=== PATIENT | male | born 1970 | race Caucasian/White ===

== ENCOUNTER 2018-08-14 17:12 | Observation (INO) | payer OTHER ==
[2018-08-14] MEDS ORDERED: Sodium Chloride 0.9% 1,000 ML IV ONE ×2 (17:16→17:27)
[2018-08-14] MEDS ORDERED: Piperacillin/Tazobactam 4.5 GM in Sodium Chloride 0.9% 100 ML IV ONE (17:27)
--- NOTE | 2018-08-14 17:27 | EDM.PDOC ---
ED HPI GENERAL MEDICAL PROBLEM - General Stated Complaint: SENT BY DR GATES A RESULT FROM LABS Time Seen by Provider: 08/14/18 17:14 - History of Present Illness INITIAL COMMENTS - FREE TEXT/NARRATIVE: HISTORY AND PHYSICAL: History of present illness: Patient's a 48-year-old male with history of COPD and hypertension sleep apnea presents with a concern of cellulitis to his left leg possible early sepsis. He was sent here by his private medical doctor for admission. This been worse over the last 2448 hrs. Review of systems: As per history of present illness and below otherwise all systems reviewed and negative. Past medical history: As per history of present illness and as reviewed below otherwise noncontributory. Surgical history: As per history of present illness and as reviewed below otherwise noncontributory. Social history: No reported history of drug or alcohol abuse. Family history: As per history of present illness and as reviewed below otherwise noncontributory. Physical exam: HEENT: Atraumatic, normocephalic, pupils reactive, negative for conjunctival pallor or scleral icterus, mucous membranes moist, throat clear, neck supple, nontender, trachea midline. Lungs: Clear to auscultation, breath sounds equal bilaterally, chest nontender. Heart: S1S2, regular, negative for clicks, rubs, or JVD. Abdomen: Soft, nondistended, nontender. Negative for masses or hepatosplenomegaly. Negative for costovertebral tenderness. Pelvis: Stable nontender. Genitourinary: Deferred. Rectal: Deferred. Extremities: Patient has a 5 x 4 cm area of erythema left leg within a descending lymphangitis is warm and slightly tender no fluctuance no induration neurovascular exams unremarkable Neuro: Awake, alert, oriented. Cranial nerves II through XII unremarkable. Cerebellum unremarkable. Motor and sensory unremarkable throughout. Exam nonfocal. Diagnostics: CBC CMP blood culture 2 chest x-ray left tib-fib x-ray lactic acid Therapeutics: Saline 1 L bolus vancomycin 1 g IV Zosyn 3.375 IV Impression: #1 cellulitis left lower extremity with ascending lymphangitis Definitive disposition and diagnosis as appropriate pending reevaluation and review of above. ED ROS GENERAL - Review of Systems Review Of Systems: ROS reveals no pertinent complaints other than HPI. ED EXAM, GENERAL - Physical Exam Exam: See Below (See dictation) Course - Orders/Labs/Meds Orders: Active Orders 24 hr Category Date Time Status Chest 1V Frontal [CR] Stat Exams 08/14/18 17:20 Ordered Tibia Fibula Lt [CR] Stat Exams 08/14/18 17:18 Ordered CBC WITH AUTO DIFF [HEME] Stat Lab 08/14/18 17:15 Ordered COMPREHENSIVE METABOLIC PN,CMP [CHEM] Stat Lab 08/14/18 17:15 Ordered CULTURE BLOOD [BC] Stat Lab 08/14/18 17:16 Ordered CULTURE BLOOD [BC] Stat Lab 08/14/18 17:16 Ordered INR,PT,PROTHROMBIN TIME [COAG] Stat Lab 08/14/18 17:15 Ordered LACTATE WITH REFLEX [BG] Stat Lab 08/14/18 17:16 Ordered UA RFX AUGUSTUS AND CULT IF INDIC [URIN] Stat Lab 08/14/18 17:15 Ordered Sodium Chloride 0.9% [Normal Saline] 1,000 ml Med 08/14/18 17:16 Active IV STAT Vancomycin [Vancocin] 1 gm Med 08/14/18 17:16 Active Sodium Chloride 0.9% [Normal Saline] 250 ml IV ONETIME Blood Culture x2 Reflex Set [OM.PC] Stat Oth 08/14/18 17:16 Ordered Medication Orders Sodium Chloride (Normal Saline) 1,000 mls @ 999 mls/hr IV STAT ONE Stop: 08/14/18 18:16 Vancomycin HCl 1 gm/ Sodium (Chloride) 250 mls @ 250 mls/hr IV ONETIME ONE Stop: 08/14/18 18:15 Meds: Medications Generic Name Dose Route Start Last Admin Trade Name Freq PRN Reason Stop Dose Admin Sodium Chloride 1,000 mls @ 999 mls/hr 08/14/18 17:16 Normal Saline IV 08/14/18 18:16 STAT ONE Vancomycin HCl 1 gm/ Sodium 250 mls @ 250 mls/hr 08/14/18 17:16 Chloride IV 08/14/18 18:15 ONETIME ONE Departure - Departure Time of Disposition: 17:26 Disposition: Refer to Observation Condition: Good Clinical Impression: Cellulitis - Discharge Information Referrals: Juliano Gates MD [Primary Care Provider] - - My Orders Last 24 Hours: My Active Orders 08/14/18 17:15 CBC WITH AUTO DIFF [HEME] Stat COMPREHENSIVE METABOLIC PN,CMP [CHEM] Stat INR,PT,PROTHROMBIN TIME [COAG] Stat UA RFX [place] AND CULT IF INDIC [URIN] Stat 08/14/18 17:16 CULTURE BLOOD [BC] Stat CULTURE BLOOD [BC] Stat LACTATE WITH REFLEX [BG] Stat Sodium Chloride 0.9% [Normal Saline] 1,000 ml IV STAT Vancomycin [Vancocin] 1 gm Sodium Chloride 0.9% [Normal Saline] 250 ml IV ONETIME Blood Culture x2 Reflex Set [OM.PC] Stat 08/14/18 17:18 Tibia Fibula Lt [CR] Stat 08/14/18 17:20 Chest 1V Frontal [CR] Stat - Assessment/Plan Last 24 Hours: My Active Orders 08/14/18 17:15 CBC WITH AUTO DIFF [HEME] Stat COMPREHENSIVE METABOLIC PN,CMP [CHEM] Stat INR,PT,PROTHROMBIN TIME [COAG] Stat UA RFX AUGUSTUS AND CULT IF INDIC [URIN] Stat 08/14/18 17:16 CULTURE BLOOD [BC] Stat CULTURE BLOOD [BC] Stat LACTATE WITH REFLEX [BG] Stat Sodium Chloride 0.9% [Normal Saline] 1,000 ml IV STAT Vancomycin [Vancocin] 1 gm Sodium Chloride 0.9% [Normal Saline] 250 ml IV ONETIME Blood Culture x2 Reflex Set [OM.PC] Stat 08/14/18 17:18 Tibia Fibula Lt [CR] Stat 08/14/18 17:20 Chest 1V Frontal [CR] Stat
[2018-08-14] MEDS ORDERED: Docusate Sodium 100 MG Cap PO PRN (17:51)
[2018-08-14] MEDS ORDERED: Ondansetron 4 MG/2 ML SDV IVPUSH PRN (17:51)
--- NOTE | 2018-08-14 18:01 | PCM.HP ---
H&P History of Present Illness - General Date of Service: 08/14/18 Admit Problem/Dx: Admission Diagnosis/Problem Admission Diagnosis/Problem Cellulitis, left lower leg Source of Information: Patient History Limitations: Reports: No Limitations - History of Present Illness Initial Comments - Free Text/Narative: The patient is a 48-year-old gentleman who had presented to the emergency department after being referred from his primary care physician. For the past 3 days the patient has been having difficulty with fever and chills and skin infection of his left lower leg. The patient also has had pain in his left lower extremity does not radiate. The patient has been exposed recently to somebody with a possible MRSA infection. The patient has reported at home that his temperature got up to 102F to 103F. Patient also says that he has had difficulty ambulating. Patient also has denied any dizziness or lightheadedness. No nausea or vomiting. No skin trauma. The patient does have a history of hypertension and has been on medications for this. Onset of Symptoms: Reports: Gradual Duration of Symptoms: Reports: Day(s): Location: Reports: Lower Extremity, Left Quality: Reports: Ache, Burning Severity: Moderate Improves with: Reports: Rest Worsens with: Reports: Heat Therapy, Movement Context: Reports: Sick Contact Associated Symptoms: Reports: Fever/Chills, Rash - Related Data Allergies/Adverse Reactions: Allergies Allergy/AdvReac Type Severity Reaction Status Date / Time No Known Allergies Allergy Verified 08/14/18 17:28 Home Medications: Home Meds Lisinopril 1 tab PO BID 08/14/18 [History] Metoprolol Tartrate 1 tab PO BID 08/14/18 [History] amLODIPine [Norvasc] 1 tab PO DAILY 08/14/18 [History] hydroCHLOROthiazide [Hydrochlorothiazide] 1 tab PO DAILY 08/14/18 [History] Past Medical History Cardiovascular History: Reports: Hypertension Respiratory History: Reports: Sleep Apnea Gastrointestinal History: Reports: None Genitourinary History: Reports: None Musculoskeletal History: Reports: None Neurological History: Reports: None Psychiatric History: Reports: None Endocrine/Metabolic History: Reports: None Hematologic History: Reports: None Immunologic History: Reports: None Oncologic (Cancer) History: Reports: None Dermatologic History: Reports: None - Infectious Disease History Infectious Disease History: Reports: Chicken Pox Social & Family History - Family History Family Medical History: Noncontributory - Tobacco Use Smoking Status *Q: Never Smoker - Caffeine Use Caffeine Use: Reports: Coffee, Tea - Alcohol Use Alcohol Use History: Yes Alcohol Use in Last Twelve Months: Yes Alcohol Use Frequency: Rarely - Recreational Drug Use Recreational Drug Use: Yes Recreational Drug Type: Reports: Marijuana/Hashish Other Recreational Drug Type: 3x weekly - Living Situation & Occupation Living situation: Reports: , with Spouse Occupation: Employed H&P Review of Systems - Review of Systems: Review Of Systems: See Below General: Reports: Fever, Chills, Malaise HEENT: Reports: No Symptoms Pulmonary: Reports: No Symptoms Cardiovascular: Reports: No Symptoms Gastrointestinal: Reports: No Symptoms Genitourinary: Reports: No Symptoms Musculoskeletal: Reports: No Symptoms Skin: Reports: Rash (Left lower leg) Psychiatric: Reports: No Symptoms Neurological: Reports: No Symptoms Hematologic/Lymphatic: Reports: No Symptoms Immunologic: Reports: No Symptoms Exam - Exam Exam: See Below - Vital Signs Vital Signs: Last Vital Signs Temp 38.1 C 08/14/18 17:25 Pulse 95 08/14/18 17:25 Resp 18 08/14/18 17:25 BP 139/75 08/14/18 17:25 Pulse Ox 95 08/14/18 17:25 Weight: 149.685 kg - Exam Quality Assessment: No: Supplemental Oxygen General: Alert, Oriented, Cooperative, Mild Distress HEENT: Conjunctiva Clear, EACs Clear, EOMI, PERRLA. No: Mucosa Moist & [place] ( Dry) Neck: Supple, Trachea Midline Lungs: Normal Respiratory Effort, Crackles Cardiovascular: Regular Rate, Regular Rhythm GI/Abdominal Exam: Normal Bowel Sounds, Soft, Non-Tender, No Distention, Other ( Obese) (Male) Exam: Deferred Rectal (Males) Exam: Deferred Back Exam: Normal Inspection, Full Range of Motion Extremities: Normal Inspection, No Pedal Edema Skin: Warm, Dry, Other (Cellulitis left posterior calf with some lymphangitis superiorly area of cellulitis demarcated) Neurological: Cranial Nerves Intact Neuro Extensive - Mental Status: Alert Neuro Extensive - Motor, Sensory, Reflexes: CN II-XII Intact Psychiatric: Alert, Normal Affect - Patient Data Lab Results Last 24 hrs: Laboratory Results - last 24 hr 08/14/18 08/14/18 Range/Units 17:20 17:20 WBC 15.88 H (4.0-11.0) K/uL RBC 4.24 L (4.50-5.90) M/uL Hgb 12.9 L (13.0-17.0) g/dL Hct 37.0 L (38.0-50.0) % MCV 87.3 (80.0-98.0) fL MCH 30.4 (27.0-32.0) pg MCHC 34.9 (31.0-37.0) g/dL RDW Std Deviation 43.5 (28.0-62.0) fl RDW Coeff of Agata 14 (11.0-15.0) % Plt Count 225 (150-400) K/uL MPV 9.20 (7.40-12.00) fL Neut % (Auto) 84.6 H (48.0-80.0) % Lymph % (Auto) 7.9 L (16.0-40.0) % Ellis % (Auto) 7.3 (0.0-15.0) % Eos % (Auto) 0.1 (0.0-7.0) % Baso % (Auto) 0.1 (0.0-1.5) % Neut # (Auto) 13.4 H (1.4-5.7) K/uL Lymph # (Auto) 1.3 (0.6-2.4) K/uL Ellis # (Auto) 1.2 H (0.0-0.8) K/uL Eos # (Auto) 0.0 (0.0-0.7) K/uL Baso # (Auto) 0.0 (0.0-0.1) K/uL Nucleated RBC % 0.0 /100WBC Nucleated RBCs # 0 K/uL Lactate 0.9 (0.20-2.00) mmol/L Result Diagrams: 08/14/18 17:20 - Problem List (1) Sepsis SNOMED Code(s): 33569635 ICD Code: A41.9 - SEPSIS, UNSPECIFIED ORGANISM Status: Acute Priority: High Current Visit: Yes Problem Details: Cutaneous source Qualifiers: Sepsis type: sepsis due to unspecified organism Qualified Code(s): A41.9 - Sepsis, unspecified organism (2) Cellulitis SNOMED Code(s): 462334582 ICD Code: L03.90 - CELLULITIS, UNSPECIFIED Status: Acute Priority: High Current Visit: Yes Qualifiers: Site of cellulitis: extremity Site of cellulitis of extremity: lower extremity Laterality: left Qualified Code(s): L03.116 - Cellulitis of left lower limb (3) Hypertension SNOMED Code(s): 40056707 ICD Code: I10 - ESSENTIAL (PRIMARY) HYPERTENSION Status: Chronic Priority : High Current Visit: Yes Qualifiers: Hypertension type: essential hypertension Qualified Code(s): I10 - Essential (primary) hypertension (4) Obesity, Class III, BMI 40-49.9 (morbid obesity) SNOMED Code(s): 115293034, 644840140, 02856926652161 ICD Code: E66.01 - MORBID (SEVERE) OBESITY DUE TO EXCESS CALORIES Status: Chronic Priority: Medium Current Visit: Yes Problem List Initiated/Reviewed/Updated: Yes Orders Last 24hrs: Active Orders 24 hr Category Date Time Status Patient Status [ADT] Stat ADT 08/14/18 17:28 Active Oxygen Therapy [RC] PRN Care 08/14/18 17:51 Active Up ad Mami [RC] ASDIRECTED Care 08/14/18 17:51 Active VTE/DVT Education [RC] PER UNIT ROUTINE Care 08/14/18 17:51 Active Vital Signs [RC] Q4H Care 08/14/18 17:51 Active Heart Healthy Diet [DIET] Diet 08/14/18 Breakfast Active Chest 1V Frontal [CR] Stat Exams 08/14/18 17:20 Ordered Tibia Fibula Lt [CR] Stat Exams 08/14/18 17:18 Ordered CBC WITH AUTO DIFF [HEME] AM Lab 08/15/18 05:11 Ordered COMPREHENSIVE METABOLIC PN,CMP [CHEM] AM Lab 08/15/18 05:11 Ordered COMPREHENSIVE METABOLIC PN,CMP [CHEM] Stat Lab 08/14/18 17:20 Received CULTURE BLOOD [BC] Stat Lab 08/14/18 17:20 Received CULTURE BLOOD [BC] Stat Lab 08/14/18 17:43 Received INR,PT,PROTHROMBIN TIME [COAG] Stat Lab 08/14/18 17:20 Received UA RFX AUGUSTUS AND CULT IF INDIC [URIN] Stat Lab 08/14/18 17:15 Ordered Acetaminophen [Tylenol] Med 08/14/18 17:51 Active 650 mg PO Q4H PRN Docusate Sodium [Colace] Med 08/14/18 17:51 Active 100 mg PO BID PRN Enoxaparin [Lovenox] Med 08/14/18 18:00 Active 40 mg SUBCUT Q24H Ketorolac [Toradol] Med 08/14/18 17:51 Active 30 mg IV Q6H PRN Ondansetron [Zofran] Med 08/14/18 17:51 Active 4 mg IVPUSH Q6H PRN Pharmacy to Dose - Vancomycin Med 08/14/18 18:00 Ordered 1 dose .XX ASDIRECTED Piperacillin/Tazobactam [Piperacil-Tazobact] 4.5 gm Med 08/14/18 17:27 Active Sodium Chloride 0.9% [Normal Saline] 100 ml IV ONETIME Piperacillin/Tazobactam [Piperacil-Tazobact] 4.5 gm Med 08/14/18 18:00 Active Sodium Chloride 0.9% [Normal Saline] 100 ml IV Q8H Sodium Chloride 0.9% [Normal Saline] 1,000 ml Med 08/14/18 18:00 Active IV ASDIRECTED Sodium Chloride 0.9% [Normal Saline] 1,000 ml Med 08/14/18 17:16 Active IV STAT Sodium Chloride 0.9% [Normal Saline] 1,000 ml Med 08/14/18 17:27 Active IV STAT Temazepam [Restoril] Med 08/14/18 17:51 Active 15 mg PO BEDTIME PRN Vancomycin [Vancocin] 1 gm Med 08/14/18 17:16 Active Sodium Chloride 0.9% [Normal Saline] 250 ml IV ONETIME Blood Culture x2 Reflex Set [OM.PC] Stat Oth 08/14/18 17:16 Ordered Resuscitation Status Routine Resus Stat 08/14/18 17:51 Ordered Medication Orders Acetaminophen (Tylenol) 650 mg PO Q4H PRN PRN Reason: Pain (Mild 1-3)/fever Docusate Sodium (Colace) 100 mg PO BID PRN PRN Reason: Constipation Enoxaparin Sodium (Lovenox) 40 mg SUBCUT Q24H NHUNG Sodium Chloride (Normal Saline) 1,000 mls @ 999 mls/hr IV STAT ONE Stop: 08/14/18 18:16 Last Admin: 08/14/18 17:30 Dose: 999 mls/hr Vancomycin HCl 1 gm/ Sodium (Chloride) 250 mls @ 250 mls/hr IV ONETIME ONE Stop: 08/14/18 18:15 Last Admin: 08/14/18 17:30 Dose: 250 mls/hr Piperacillin Sod/Tazobactam (Sod 4.5 gm/ Sodium Chloride) 100 mls @ 100 mls/hr IV ONETIME ONE Stop: 08/14/18 18:26 Last Admin: 08/14/18 17:37 Dose: 100 mls/hr Sodium Chloride (Normal Saline) 1,000 mls @ 999 mls/hr IV STAT ONE Stop: 08/14/18 18:27 Piperacillin Sod/Tazobactam (Sod 4.5 gm/ Sodium Chloride) 100 mls @ 100 mls/hr IV Q8H NHUNG Sodium Chloride (Normal Saline) 1,000 mls @ 100 mls/hr IV ASDIRECTED [facility] Ketorolac Tromethamine (Toradol) 30 mg IV Q6H PRN PRN Reason: Pain (moderate 4-6) Ondansetron HCl (Zofran) 4 mg IVPUSH Q6H PRN PRN Reason: Nausea/Vomiting Temazepam (Restoril) 15 mg PO BEDTIME PRN PRN Reason: Sleep Vancomycin HCl (Pharmacy To Dose - Vancomycin) 1 dose .XX ASDIRECTED [facility] Assessment/Plan Comment:: The patient is a 48-year-old gentleman who had been referred from his primary care physician. He was admitted to the emergency department and has an of diagnosing criteria to meet Z sepsis diagnosis. The patient's lactate is normal. He'll be started on Zosyn 4.5 g every 8 hours along with vancomycin with pharmacy to dose. I have reviewed the patient's home medications list and he'll be started on his antihypertensive medications once the list has been updated. He'll be monitored with his vital signs every 4 hours and his medications for hypertension be adjusted as conditions and information indicates. Patient is also to have a heart healthy diet as tolerated. The patient will be kept on IV normal saline at 75 mL per hour. Patient had blood cultures that are currently pending which were completed from the emergency department. Also to help exclude abscess and/or DVT of ordered ultrasound of the patient's lower extremities. He will be anticoagulated with the use of Lovenox. The patient should be appropriate for discharge in 1-2 days depending on his symptomology.
[2018-08-14 18:05] LABS: CHLORIDE,CL 96 mmol/L (98-107); SODIUM,NA 134 mmol/L (136-148)
--- NOTE | 2018-08-14 18:40 | CR ---
HISTORY: Edema. TECHNIQUE: Two views of the left tibia and fibula. COMPARISON: No prior. FINDINGS: No acute tibial or fibular fracture. Mild degenerative changes of the knee. Plantar calcaneal spur. One of the sesamoid bones is bipartite or previously fractured. No soft tissue gas. IMPRESSION: 1. No left tibial or fibular fracture nor bony destructive change. 2. No soft tissue gas. Dictated by Ede Aviles MD @ 08/14/2018 6:39:29 PM Dictated by: Ede Aviles MD @ 08/14/2018 18:39:35 (Electronically Signed)
--- NOTE | 2018-08-14 18:40 | CR ---
INDICATION: Shortness of breath TECHNIQUE: Chest 1 view COMPARISON: None FINDINGS: Cardiovascular and mediastinum: Heart size and vasculature are normal in caliber and appearance. Lungs and pleural spaces: Lungs are clear. No sign of infiltrate or mass. No sign of pleural effusion. No pneumothorax. Bones and soft tissues: No significant findings. IMPRESSION: No acute or significant findings. Dictated by Tuan Thibodeaux MD @ Aug 14 2018 6:37PM Signed by Dr. Tuan Thibodeaux @ Aug 14 2018 6:37PM
[2018-08-14] MEDS: Piperacillin/Tazobactam 4.5 GM in Sodium Chloride 0.9% 100 ML IV SCH (18:56)
[2018-08-14] MEDS ORDERED: Vancomycin 2 GM in Sodium Chloride 0.9% 500 ML IV SCH (19:00)
[2018-08-14] MEDS: Sodium Chloride 0.9% 1,000 ML IV SCH (19:30)
[2018-08-14] MEDS: Enoxaparin 40 MG/0.4 ML Syringe SUBCUT SCH (19:56)
--- NOTE | 2018-08-14 21:07 | US ---
INDICATION: Left leg erythema and warmth TECHNIQUE: Ultrasound venous duplex lower left extremity. Compression venous exam was performed using umana-scale, color Doppler, and spectral Doppler analysis. COMPARISON: None FINDINGS: Sonographic imaging demonstrates the left common femoral, deep femoral, superficial femoral, popliteal, posterior tibial and greater saphenous vein to be fully compressible with normal color Doppler blood flow. IMPRESSION: Normal left lower extremity venous ultrasound, no sign of deep venous thrombosis. Dictated by Elisabeth Eaton MD @ Aug 14 2018 9:05PM Signed by Dr. Elisabeth Eaton @ Aug 14 2018 9:05PM
[2018-08-14] MEDS: Acetaminophen 325 MG Tab PO PRN (21:37)
[2018-08-14] MEDS: Temazepam 15 MG Cap PO PRN (21:37)
[2018-08-14] MEDS ORDERED: Benzocaine/Cetylpyridinium/Menthol Lozenge MUCMEM PRN (21:44)
[2018-08-15] MEDS: Piperacillin/Tazobactam 4.5 GM in Sodium Chloride 0.9% 100 ML IV SCH ×3 (01:25→18:24)
[2018-08-15] MEDS: Vancomycin 1.75 GM in Sodium Chloride 0.9% 500 ML IV SCH ×3 (03:00→19:45)
[2018-08-15] MEDS: Acetaminophen 325 MG Tab PO PRN ×2 (04:44→11:14)
[2018-08-15] MEDS: Sodium Chloride 0.9% 1,000 ML IV SCH ×2 (07:15→19:45)
[2018-08-15] MEDS: Ketorolac 30 MG/ML SDV IV PRN ×2 (07:35→14:58)
--- NOTE | 2018-08-15 07:49 | PCM.PN ---
- General Info Date of Service: 08/15/18 Admission Dx/Problem (Free Text): Admission Diagnosis/Problem Admission Diagnosis/Problem Cellulitis, left lower leg Subjective Update: The patient is a 48-year-old gentleman who was referred to the emergency department from his primary care physician. He was admitted secondary to cellulitis of his left lower extremity. Patient today is doing better. He is having less pain in his left lower leg. The patient says that he has been sweating heavily. He was also febrile early this morning. Functional Status: Reports: Pain Controlled - Review of Systems General: Reports: No Symptoms HEENT: Reports: No Symptoms Pulmonary: Reports: No Symptoms Cardiovascular: Reports: No Symptoms Gastrointestinal: Reports: No Symptoms Genitourinary: Reports: No Symptoms Musculoskeletal: Reports: Leg Pain Skin: Reports: Diaphoresis, Other Neurological: Reports: No Symptoms Psychiatric: Reports: No Symptoms - Patient Data Vitals - Most Recent: Last Vital Signs Temp 37.8 C 08/15/18 05:30 Pulse 94 08/15/18 04:30 Resp 18 08/15/18 04:30 BP 154/81 H 08/15/18 04:30 Pulse Ox 95 08/15/18 04:30 Weight - Most Recent: 151.642 kg I&O - Last 24 Hours: Intake & Output 08/14/18 08/15/18 08/15/18 22:59 06:59 14:59 Intake Total 1100 Output Total 650 Balance 450 Lab Results Last 24 Hours: Laboratory Results - last 24 hr 08/14/18 08/14/18 08/14/18 Range/Units 17:20 17:20 17:20 WBC 15.88 H (4.0-11.0) K/uL RBC 4.24 L (4.50-5.90) M/uL Hgb 12.9 L (13.0-17.0) g/dL Hct 37.0 L (38.0-50.0) % MCV 87.3 (80.0-98.0) fL MCH 30.4 (27.0-32.0) pg MCHC 34.9 (31.0-37.0) g/dL RDW Std Deviation 43.5 (28.0-62.0) fl RDW Coeff of Agata 14 (11.0-15.0) % Plt Count 225 (150-400) K/uL MPV 9.20 (7.40-12.00) fL Neut % (Auto) 84.6 H (48.0-80.0) % Lymph % (Auto) 7.9 L (16.0-40.0) % Coffee % (Auto) 7.3 (0.0-15.0) % Eos % (Auto) 0.1 (0.0-7.0) % Baso % (Auto) 0.1 (0.0-1.5) % Neut # (Auto) 13.4 H (1.4-5.7) K/uL Lymph # (Auto) 1.3 (0.6-2.4) K/uL Coffee # (Auto) 1.2 H (0.0-0.8) K/uL Eos # (Auto) 0.0 (0.0-0.7) K/uL Baso # (Auto) 0.0 (0.0-0.1) K/uL Nucleated RBC % 0.0 /100WBC Nucleated RBCs # 0 K/uL INR 1.00 Lactate (0.20-2.00) mmol/L Sodium 134 L (136-148) mmol/L Potassium 3.1 L (3.5-5.1) mmol/L Chloride 96 L (98-107) mmol/L Carbon Dioxide 24.9 (21.0-32.0) mmol/L BUN 18 (7.0-18.0) mg/dL Creatinine 1.1 (0.8-1.3) mg/dL Est Cr Clr Drug Dosing 94.45 mL/min Estimated GFR (MDRD) > 60.0 ml/min Glucose 128 H (74-106) mg/dL Calcium 8.8 (8.5-10.1) mg/dL Total Bilirubin 0.7 (0.2-1.0) mg/dL AST 19 (15-37) IU/L ALT 40 (14-63) IU/L Alkaline Phosphatase 73 (46-116) U/L Total Protein 8.1 (6.4-8.2) g/dL Albumin 3.2 L (3.4-5.0) g/dL Globulin 4.9 H (2.6-4.0) g/dL Albumin/Globulin Ratio 0.7 L (0.9-1.6) Urine Color Urine Appearance Urine pH (5.0-8.0) Ur Specific [place] (1.001-1.035) Urine Protein (NEGATIVE) mg/dL Urine Glucose (UA) (NEGATIVE) mg/dL Urine Ketones (NEGATIVE) mg/dL Urine Occult Blood (NEGATIVE) Urine Nitrite (NEGATIVE) Urine Bilirubin (NEGATIVE) Urine Urobilinogen (<2.0) EU/dL Ur Leukocyte Esterase (NEGATIVE) Urine RBC (0-2/HPF) Urine WBC (0-5/HPF) Ur Epithelial Cells (NONE-FEW) Amorphous Sediment (NEGATIVE) Urine Bacteria (NEGATIVE) Urine Mucus (NONE-MOD) 08/14/18 08/14/18 Range/Units 17:20 22:45 WBC (4.0-11.0) K/uL RBC (4.50-5.90) M/uL Hgb (13.0-17.0) g/dL Hct (38.0-50.0) % MCV (80.0-98.0) fL MCH (27.0-32.0) pg MCHC (31.0-37.0) g/dL RDW Std Deviation (28.0-62.0) fl RDW Coeff of Agata (11.0-15.0) % Plt Count (150-400) K/uL MPV (7.40-12.00) fL Neut % (Auto) (48.0-80.0) % Lymph % (Auto) (16.0-40.0) % Coffee % (Auto) (0.0-15.0) % Eos % (Auto) (0.0-7.0) % Baso % (Auto) (0.0-1.5) % Neut # (Auto) (1.4-5.7) K/uL Lymph # (Auto) (0.6-2.4) K/uL Coffee # (Auto) (0.0-0.8) K/uL Eos # (Auto) (0.0-0.7) K/uL Baso # (Auto) (0.0-0.1) K/uL Nucleated RBC % /100WBC Nucleated RBCs # K/uL INR Lactate 0.9 (0.20-2.00) mmol/L Sodium (136-148) mmol/L Potassium (3.5-5.1) mmol/L Chloride (98-107) mmol/L Carbon Dioxide (21.0-32.0) mmol/L BUN (7.0-18.0) mg/dL Creatinine (0.8-1.3) mg/dL Est Cr Clr Drug Dosing mL/min Estimated GFR (MDRD) ml/min Glucose (74-106) mg/dL Calcium (8.5-10.1) mg/dL Total Bilirubin (0.2-1.0) mg/dL AST (15-37) IU/L ALT (14-63) IU/L Alkaline Phosphatase (46-116) U/L Total Protein (6.4-8.2) g/dL Albumin (3.4-5.0) g/dL Globulin (2.6-4.0) g/dL Albumin/Globulin Ratio (0.9-1.6) Urine Color DARK YELLOW Urine Appearance CLEAR Urine pH 5.5 (5.0-8.0) Ur Specific [place] >= 1.030 (1.001-1.035) Urine Protein 100 H (NEGATIVE) mg/dL Urine Glucose (UA) NEGATIVE (NEGATIVE) mg/dL Urine Ketones NEGATIVE (NEGATIVE) mg/dL Urine Occult Blood TRACE-INTACT H (NEGATIVE) Urine Nitrite NEGATIVE (NEGATIVE) Urine Bilirubin NEGATIVE (NEGATIVE) Urine Urobilinogen 1.0 (<2.0) EU/dL Ur Leukocyte Esterase NEGATIVE (NEGATIVE) Urine RBC 0-2 (0-2/HPF) Urine WBC 0-2 (0-5/HPF) Ur Epithelial Cells RARE (NONE-FEW) Amorphous Sediment LIGHT (NEGATIVE) Urine Bacteria FEW (NEGATIVE) Urine Mucus LIGHT (NONE-MOD) Med Orders - Current: Current Medications Acetaminophen (Tylenol) 650 mg PO Q4H PRN PRN Reason: Pain (Mild 1-3)/fever Last Admin: 08/15/18 04:44 Dose: 650 mg Benzocaine/Menthol (Cepacol Sore Throat) 1 lozenge MUCMEM Q2HR PRN PRN Reason: Sore Throat Last Admin: 08/14/18 22:00 Dose: 1 lozenge Docusate Sodium (Colace) 100 mg PO BID PRN PRN Reason: Constipation Enoxaparin Sodium (Lovenox) 40 mg SUBCUT Q24H [facility] Last Admin: 08/14/18 19:56 Dose: 40 mg Piperacillin Sod/Tazobactam (Sod 4.5 gm/ Sodium Chloride) 100 mls @ 100 mls/hr IV Q8H [facility] Last Admin: 08/15/18 01:25 Dose: 100 mls/hr Sodium Chloride (Normal Saline) 1,000 mls @ 100 mls/hr IV ASDIRECTED [facility] Last Admin: 08/15/18 07:15 Dose: 100 mls/hr Vancomycin HCl 2 gm/ Sodium (Chloride) 500 mls @ 333.333 mls/hr IV NOW [facility] Vancomycin HCl 1.75 gm/ Sodium (Chloride) 500 mls @ 333.333 mls/hr IV Q8H [facility] Last Admin: 08/15/18 03:00 Dose: 333.333 mls/hr Ketorolac Tromethamine (Toradol) 30 mg IV Q6H PRN PRN Reason: Pain (moderate 4-6) Last Admin: 08/15/18 07:35 Dose: 30 mg Ondansetron HCl (Zofran) 4 mg IVPUSH Q6H PRN PRN Reason: Nausea/Vomiting Temazepam (Restoril) 15 mg PO BEDTIME PRN PRN Reason: Sleep Last Admin: 08/14/18 21:37 Dose: 15 mg Vancomycin HCl (Pharmacy To Dose - Vancomycin) 1 dose .XX ASDIRECTED [facility] Discontinued Medications Sodium Chloride (Normal Saline) 1,000 mls @ 999 mls/hr IV STAT ONE Stop: 08/14/18 18:16 Last Admin: 08/14/18 17:30 Dose: 999 mls/hr Vancomycin HCl 1 gm/ Sodium (Chloride) 250 mls @ 250 mls/hr IV ONETIME ONE Stop: 08/14/18 18:15 Last Admin: 08/14/18 17:30 Dose: 250 mls/hr Piperacillin Sod/Tazobactam (Sod 4.5 gm/ Sodium Chloride) 100 mls @ 100 mls/hr IV ONETIME ONE Stop: 08/14/18 18:26 Last Admin: 08/14/18 17:37 Dose: 100 mls/hr Sodium Chloride (Normal Saline) 1,000 mls @ 999 mls/hr IV STAT ONE Stop: 08/14/18 18:27 Last Admin: 08/14/18 18:57 Dose: Not Given - Exam Quality Assessment: No: Supplemental Oxygen General: Alert, Oriented, Cooperative, No Acute Distress HEENT: Pupils Equal, Pupils Reactive, EOMI Neck: Supple, Trachea Midline Lungs: Clear to Auscultation, Normal Respiratory Effort Cardiovascular: Regular Rate, Regular Rhythm GI/Abdominal Exam: Normal Bowel Sounds, Soft, Non-Tender, No Distention (Male) Exam: Deferred Back Exam: Normal Inspection, Full Range of Motion Extremities: No: Normal Inspection (Edema left lower leg) Skin: Rash (Area of cellulitis posterior left lower leg improved less redness today.) Wound/Incisions: Healing Well Neurological: No New Focal Deficit Psy/Mental Status: Alert, Normal Affect - Problem List & Annotations (1) Sepsis SNOMED Code(s): 88339559 Code(s): A41.9 - SEPSIS, UNSPECIFIED ORGANISM Status: Acute Priority: High Current Visit: Yes Qualifiers: Sepsis type: sepsis due to unspecified organism Qualified Code(s): A41.9 - Sepsis, unspecified organism Annotation/Comment:: Cutaneous source (2) Cellulitis SNOMED Code(s): 958741826 Code(s): L03.90 - CELLULITIS, UNSPECIFIED Status: Acute Priority: High Current Visit: Yes Qualifiers: Site of cellulitis: extremity Site of cellulitis of extremity: lower extremity Laterality: left Qualified Code(s): L03.116 - Cellulitis of left lower limb (3) Hypertension SNOMED Code(s): 05020260 Code(s): I10 - ESSENTIAL (PRIMARY) HYPERTENSION Status: Chronic Priority : High Current Visit: Yes Qualifiers: Hypertension type: essential hypertension Qualified Code(s): I10 - Essential (primary) hypertension (4) Obesity, Class III, BMI 40-49.9 (morbid obesity) SNOMED Code(s): 487505260, 246416189, 28778018452843 Code(s): E66.01 - MORBID (SEVERE) OBESITY DUE TO EXCESS CALORIES Status: Chronic Priority: Medium Current Visit: Yes - Problem List Review Problem List Initiated/Reviewed/Updated: Yes - My Orders Last 24 Hours: My Active Orders 08/14/18 17:51 Oxygen Therapy [RC] PRN Up ad Mami [RC] ASDIRECTED VTE/DVT Education [RC] PER UNIT ROUTINE Vital Signs [RC] Q4H Acetaminophen [Tylenol] 650 mg PO Q4H PRN Docusate Sodium [Colace] 100 mg PO BID PRN Ketorolac [Toradol] 30 mg IV Q6H PRN Ondansetron [Zofran] 4 mg IVPUSH Q6H PRN Temazepam [Restoril] 15 mg PO BEDTIME PRN Resuscitation Status Routine 08/14/18 18:00 Enoxaparin [Lovenox] 40 mg SUBCUT Q24H Pharmacy to Dose - Vancomycin 1 dose .XX ASDIRECTED Piperacillin/Tazobactam [Piperacil-Tazobact] 4.5 gm Sodium Chloride 0.9% [ Normal Saline] 100 ml IV Q8H Sodium Chloride 0.9% [Normal Saline] 1,000 ml IV ASDIRECTED 08/14/18 21:44 Benzocaine/Cetylpyrd/Menthol [Cepacol Sore Throat] 1 lozenge MUCMEM Q2HR PRN - Plan Plan:: Patient is a 48-year-old gentleman who was experiencing some improvement from his sepsis. He was febrile yesterday with maximum temperature of 38.5 Celsius. There has been some improvement in the appearance of his cellulitis and the patient will be continued on his current antibiotics as well as IV of normal saline. The patient has been encouraged to ambulate. Ultrasound did not show any sign of DVT and for now he'll be continued on his current dose of Lovenox. The patient also be kept on help regular diet as tolerated.
[2018-08-15] MEDS: Lisinopril 10 MG Tab PO SCH ×2 (18:20→21:34)
[2018-08-15] MEDS: Enoxaparin 40 MG/0.4 ML Syringe SUBCUT SCH (18:21)
[2018-08-15] MEDS: Hydrochlorothiazide 25 MG Tab PO SCH (18:27)
[2018-08-15] MEDS: amLODIPine 5 MG Tab PO SCH (18:28)
[2018-08-15] MEDS: Metoprolol Tartrate 25 MG Tab PO SCH (21:30)
[2018-08-15] MEDS: Temazepam 15 MG Cap PO PRN (21:32)
[2018-08-16] MEDS: Piperacillin/Tazobactam 4.5 GM in Sodium Chloride 0.9% 100 ML IV SCH ×3 (01:30→17:35)
[2018-08-16] MEDS: Ketorolac 30 MG/ML SDV IV PRN ×2 (02:40→15:03)
[2018-08-16] MEDS: Vancomycin 1.75 GM in Sodium Chloride 0.9% 500 ML IV SCH ×3 (03:30→19:27)
[2018-08-16] MEDS: Lisinopril 10 MG Tab PO SCH ×2 (08:29→21:12)
[2018-08-16] MEDS: Hydrochlorothiazide 25 MG Tab PO SCH (08:30)
[2018-08-16] MEDS: Metoprolol Tartrate 25 MG Tab PO SCH ×2 (08:31→21:12)
[2018-08-16] MEDS: amLODIPine 5 MG Tab PO SCH (08:31)
[2018-08-16 08:33] LABS: SODIUM,NA 141 mmol/L (136-148)
[2018-08-16 08:34] LABS: CHLORIDE,CL 105 mmol/L (98-107)
[2018-08-16] MEDS: Sodium Chloride 0.9% 1,000 ML IV SCH (09:39)
--- NOTE | 2018-08-16 10:44 | PCM.PN ---
- General Info Date of Service: 08/16/18 Admission Dx/Problem (Free Text): Admission Diagnosis/Problem Admission Diagnosis/Problem Cellulitis, left lower leg Subjective Update: The patient is a 48-year-old gentleman who had been admitted to the emergency department on August 14, 2018. The patient had an infection of his left lower leg along with fever and chills. Today after antibiotics patient says that he is feeling better although he is still having some pain and swelling of his left lower leg. The patient has denied any fever or chills. Patient also has been tolerating his diet. Functional Status: Reports: Pain Controlled - Review of Systems General: Reports: No Symptoms HEENT: Reports: No Symptoms Pulmonary: Reports: No Symptoms Cardiovascular: Reports: No Symptoms Gastrointestinal: Reports: No Symptoms Genitourinary: Reports: No Symptoms Musculoskeletal: Reports: No Symptoms Skin: Reports: Rash, Other (Cellulitis) Neurological: Reports: No Symptoms Psychiatric: Reports: No Symptoms - Patient Data Vitals - Most Recent: Last Vital Signs Temp 36.7 C 08/16/18 09:00 Pulse 72 08/16/18 09:00 Resp 20 08/16/18 09:00 BP 145/86 H 08/16/18 09:00 Pulse Ox 97 08/16/18 09:00 Weight - Most Recent: 151.642 kg I&O - Last 24 Hours: Intake & Output 08/15/18 08/16/18 08/16/18 22:59 06:59 14:59 Intake Total 1386 1540 100 Output Total 300 450 Balance 1086 1090 100 Lab Results Last 24 Hours: Laboratory Results - last 24 hr 08/16/18 08/16/18 08/16/18 Range/Units 02:30 08:02 08:02 WBC 8.94 (4.0-11.0) K/uL RBC 3.70 L (4.50-5.90) M/uL Hgb 10.9 L (13.0-17.0) g/dL Hct 32.8 L (38.0-50.0) % MCV 88.6 (80.0-98.0) fL MCH 29.5 (27.0-32.0) pg MCHC 33.2 (31.0-37.0) g/dL RDW Std Deviation 44.0 (28.0-62.0) fl RDW Coeff of Agata 14 (11.0-15.0) % Plt Count 192 (150-400) K/uL MPV 8.60 (7.40-12.00) fL Neut % (Auto) 63.8 (48.0-80.0) % Lymph % (Auto) 23.7 (16.0-40.0) % [place] % (Auto) 9.3 (0.0-15.0) % Eos % (Auto) 2.8 (0.0-7.0) % Baso % (Auto) 0.4 (0.0-1.5) % Neut # (Auto) 5.7 (1.4-5.7) K/uL Lymph # (Auto) 2.1 (0.6-2.4) K/uL [place] # (Auto) 0.8 (0.0-0.8) K/uL Eos # (Auto) 0.3 (0.0-0.7) K/uL Baso # (Auto) 0.0 (0.0-0.1) K/uL Nucleated RBC % 0.0 /100WBC Nucleated RBCs # 0 K/uL Sodium 141 (136-148) mmol/L Potassium 3.9 (3.5-5.1) mmol/L Chloride 105 (98-107) mmol/L Carbon Dioxide 28.8 (21.0-32.0) mmol/L BUN 16 (7.0-18.0) mg/dL Creatinine 1.0 (0.8-1.3) mg/dL Est Cr Clr Drug Dosing 103.89 mL/min Estimated GFR (MDRD) > 60.0 ml/min Glucose 106 (74-106) mg/dL Calcium 8.1 L (8.5-10.1) mg/dL Vancomycin Trough 13.7 H (5.0-10.0) ug/mL [place]ory Results Last 24 Hours: Microbiology 08/14/18 17:43 Aerobic Blood Culture - Preliminary Blood - Venous - Lab Draw NO GROWTH AFTER 1 DAY Anaerobic Blood Culture - Preliminary NO GROWTH AFTER 1 DAY 08/14/18 17:20 Aerobic Blood Culture - Preliminary Blood - Venous NO GROWTH AFTER 1 DAY Anaerobic Blood Culture - Preliminary NO GROWTH AFTER 1 DAY Med Orders - Current: Current Medications Acetaminophen (Tylenol) 650 mg PO Q4H PRN PRN Reason: Pain (Mild 1-3)/fever Last Admin: 08/15/18 11:14 Dose: 650 mg Amlodipine Besylate (Norvasc) 5 mg PO DAILY [facility] Last Admin: 08/16/18 08:31 Dose: 5 mg Benzocaine/Menthol (Cepacol Sore Throat) 1 lozenge MUCMEM Q2HR PRN PRN Reason: Sore Throat Last Admin: 08/14/18 22:00 Dose: 1 lozenge Docusate Sodium (Colace) 100 mg PO BID PRN PRN Reason: Constipation Last Admin: 08/15/18 21:32 Dose: 100 mg Enoxaparin Sodium (Lovenox) 40 mg SUBCUT Q24H [facility] Last Admin: 08/15/18 18:21 Dose: 40 mg Hydrochlorothiazide (Hydrochlorothiazide) 25 mg PO DAILY [facility] Last Admin: 08/16/18 08:30 Dose: 25 mg Piperacillin Sod/Tazobactam (Sod 4.5 gm/ Sodium Chloride) 100 mls @ 100 mls/hr IV Q8H [facility] Last Admin: 08/16/18 09:48 Dose: 100 mls/hr Sodium Chloride (Normal Saline) 1,000 mls @ 100 mls/hr IV ASDIRECTED [facility] Last Admin: 08/16/18 09:39 Dose: 100 mls/hr Vancomycin HCl 2 gm/ Sodium (Chloride) 500 mls @ 333.333 mls/hr IV NOW [facility] Vancomycin HCl 1.75 gm/ Sodium (Chloride) 500 mls @ 333.333 mls/hr IV Q8H [facility] Last Admin: 08/16/18 03:30 Dose: 333.333 mls/hr Ketorolac Tromethamine (Toradol) 30 mg IV Q6H PRN PRN Reason: Pain (moderate 4-6) Last Admin: 08/16/18 02:40 Dose: 30 mg Lisinopril (Prinivil) 20 mg PO BID [facility] Last Admin: 08/16/18 08:29 Dose: 20 mg Metoprolol Tartrate (Lopressor) 25 mg PO BID [facility] Last Admin: 08/16/18 08:31 Dose: 25 mg Ondansetron HCl (Zofran) 4 mg IVPUSH Q6H PRN PRN Reason: Nausea/Vomiting Temazepam (Restoril) 15 mg PO BEDTIME PRN PRN Reason: Sleep Last Admin: 08/15/18 21:32 Dose: 15 mg Vancomycin HCl (Pharmacy To Dose - Vancomycin) 1 dose .XX ASDIRECTED [facility] Discontinued Medications Sodium Chloride (Normal Saline) 1,000 mls @ 999 mls/hr IV STAT ONE Stop: 08/14/18 18:16 Last Admin: 08/14/18 17:30 Dose: 999 mls/hr Vancomycin HCl 1 gm/ Sodium (Chloride) 250 mls @ 250 mls/hr IV ONETIME ONE Stop: 08/14/18 18:15 Last Admin: 08/14/18 17:30 Dose: 250 mls/hr Piperacillin Sod/Tazobactam (Sod 4.5 gm/ Sodium Chloride) 100 mls @ 100 mls/hr IV ONETIME ONE Stop: 08/14/18 18:26 Last Admin: 08/14/18 17:37 Dose: 100 mls/hr Sodium Chloride (Normal Saline) 1,000 mls @ 999 mls/hr IV STAT ONE Stop: 08/14/18 18:27 Last Admin: 08/14/18 18:57 Dose: Not Given - Exam Quality Assessment: No: Supplemental Oxygen General: Alert, Oriented, Cooperative, No Acute Distress HEENT: Pupils Equal, Pupils Reactive, EOMI, Mucous Membr. Moist/[place] Neck: Supple, Trachea Midline Lungs: Clear to Auscultation, Normal Respiratory Effort Cardiovascular: Regular Rate, Regular Rhythm GI/Abdominal Exam: Normal Bowel Sounds, Soft, Non-Tender, No Distention (Male) Exam: Deferred Back Exam: Normal Inspection, Full Range of Motion Extremities: Normal Inspection, Normal Range of Motion, No Pedal Edema, Leg Pain (Left lower leg) Skin: Warm, Dry, Intact, Other (Improving cellulitis to left lower leg.) Neurological: No New Focal Deficit Psy/Mental Status: Alert, Normal Affect, Normal Mood - Problem List & Annotations (1) Cellulitis SNOMED Code(s): 079258314 Code(s): L03.90 - CELLULITIS, UNSPECIFIED Status: Acute Priority: High Current Visit: Yes Qualifiers: Site of cellulitis: extremity Site of cellulitis of extremity: lower extremity Laterality: left Qualified Code(s): L03.116 - Cellulitis of left lower limb (2) Sepsis SNOMED Code(s): 26208512 Code(s): A41.9 - SEPSIS, UNSPECIFIED ORGANISM Status: Resolved Priority: High Current Visit: Yes Qualifiers: Sepsis type: sepsis due to unspecified organism Qualified Code(s): A41.9 - Sepsis, unspecified organism Annotation/Comment:: Cutaneous source (3) Hypertension SNOMED Code(s): 55976565 Code(s): I10 - ESSENTIAL (PRIMARY) HYPERTENSION Status: Chronic Priority : High Current Visit: Yes Qualifiers: Hypertension type: essential hypertension Qualified Code(s): I10 - Essential (primary) hypertension (4) Obesity, Class III, BMI 40-49.9 (morbid obesity) SNOMED Code(s): 479250357, 796092563, 36420669185748 Code(s): E66.01 - MORBID (SEVERE) OBESITY DUE TO EXCESS CALORIES Status: Chronic Priority: Medium Current Visit: Yes - Problem List Review Problem List Initiated/Reviewed/Updated: Yes - My Orders Last 24 Hours: My Active Orders 08/15/18 17:15 Lisinopril [Prinivil] 20 mg PO BID amLODIPine [Norvasc] 5 mg PO DAILY hydroCHLOROthiazide 25 mg PO DAILY 08/15/18 21:00 Metoprolol Tartrate [Lopressor] 25 mg PO BID 08/16/18 Breakfast Regular Diet [DIET] - Plan Plan:: The patient is a 48-year-old gentleman who is doing better today. He has less redness and edema of his left lower extremity. For now the patient will be kept on current IV antibiotics. The patient is currently on Zosyn and vancomycin and the patient's blood cultures of thus far show no growth. His antibiotics will be changed as cultures indicate. The patient will also be kept on DVT prophylaxis. Vital signs a continue to monitor for fever. The patient's previously noted leukocytosis and sepsis have resolved. The patient would be appropriate for discharge possibly 1-2 days on oral antibiotics.
[2018-08-16] MEDS: Acetaminophen 325 MG Tab PO PRN (11:05)
[2018-08-16] MEDS: Enoxaparin 40 MG/0.4 ML Syringe SUBCUT SCH (17:34)
[2018-08-16] MEDS: Temazepam 15 MG Cap PO PRN (21:12)
[2018-08-17] MEDS: Sodium Chloride 0.9% 1,000 ML IV SCH (00:45)
[2018-08-17] MEDS: Piperacillin/Tazobactam 4.5 GM in Sodium Chloride 0.9% 100 ML IV SCH (02:00)
[2018-08-17] MEDS: Vancomycin 1.75 GM in Sodium Chloride 0.9% 500 ML IV SCH (03:00)
[2018-08-17 06:42] LABS: CHLORIDE,CL 105 mmol/L (98-107); SODIUM,NA 140 mmol/L (136-148)
[2018-08-17] MEDS: Acetaminophen 325 MG Tab PO PRN (07:38)
--- NOTE | 2018-08-17 07:41 | PCM.DCSUM1 ---
Discharge Summary - Hospital Course Diagnosis: Stroke: No - Discharge Data Discharge Date: 08/17/18 Discharge Disposition: Home, Self-Care 01 Condition: Good - Discharge Diagnosis/Problem(s) (1) Cellulitis SNOMED Code(s): 700595450 ICD Code: L03.90 - CELLULITIS, UNSPECIFIED Status: Acute Priority: High Current Visit: Yes Qualifiers: Site of cellulitis: extremity Site of cellulitis of extremity: lower extremity Laterality: left Qualified Code(s): L03.116 - Cellulitis of left lower limb (2) Sepsis SNOMED Code(s): 90723394 ICD Code: A41.9 - SEPSIS, UNSPECIFIED ORGANISM Status: Resolved Priority : High Current Visit: Yes Problem Details: Cutaneous source Qualifiers: Sepsis type: sepsis due to unspecified organism Qualified Code(s): A41.9 - Sepsis, unspecified organism (3) Hypertension SNOMED Code(s): 87188942 ICD Code: I10 - ESSENTIAL (PRIMARY) HYPERTENSION Status: Chronic Priority : High Current Visit: Yes Qualifiers: Hypertension type: essential hypertension Qualified Code(s): I10 - Essential (primary) hypertension (4) Obesity, Class III, BMI 40-49.9 (morbid obesity) SNOMED Code(s): 615099243, 329193444, 24956748744890 ICD Code: E66.01 - MORBID (SEVERE) OBESITY DUE TO EXCESS CALORIES Status: Chronic Priority: Medium Current Visit: Yes - Patient Summary/Data Hospital Course: The patient is a 48-year-old gentleman who had presented to the emergency department after being referred from his primary care physician. For the past 3 days the patient has been having difficulty with fever and chills and skin infection of his left lower leg. The patient also has had pain in his left lower extremity does not radiate. The patient has been exposed recently to somebody with a possible MRSA infection. The patient has reported at home that his temperature got up to 102F to 103F. Patient also says that he has had difficulty ambulating.The patient also had enough diagnostic criteria to meet sepsis diagnosis with fever, elevated white blood cell count and other vital signs. The patient was quickly started on Zosyn and vancomycin and the patient had tolerated these well. The patient also had multiple electrolyte abnormalities to include sodium potassium and chloride all being low and these were resolved prior to discharge. The patient was aggressively fluid resuscitated and this had improved his overall renal functioning. The patient's BUN/creatinine 14 and 1.0 upon discharge. The patient also has been discharged on his home hypertension medication as well as linezolid 600 mg by mouth twice a day. He was given prescription for 10 capsules. The patient is to follow-up with his primary care physician as scheduled. By day of discharge the patient says that he was 100% better. He had been ambulating. He also had been recommended to delay his return to work for 1 week secondary to the infection. The patient has been tolerating his diet and he has been recommended to continue with his diet. Patient is also to have activity as tolerated. He has been hemodynamically stable and he is discharged from acute hospitalization with the recommendations listed above. - Patient Instructions Diet: Heart Healthy Diet Activity: As Tolerated Notify Provider of: Fever, Increased Pain - Discharge Plan *PRESCRIPTION DRUG MONITORING PROGRAM REVIEWED*: No *COPY OF PRESCRIPTION DRUG MONITORING REPORT IN PATIENT BROCK: No Prescriptions/Med Rec: Linezolid 600 mg PO BID #10 tablet Home Medications: Home Meds Lisinopril 1 tab PO BID 08/14/18 [History] Metoprolol Tartrate 1 tab PO BID 08/14/18 [History] amLODIPine [Norvasc] 1 tab PO DAILY 08/14/18 [History] hydroCHLOROthiazide [Hydrochlorothiazide] 1 tab PO DAILY 08/14/18 [History] Linezolid 600 mg PO BID #10 tablet 08/17/18 [Rx] Oxygen Therapy Mode: Room Air Patient Handouts: Linezolid tablets, Cellulitis, Adult, [id number] Referrals: [facility] [Outside] - 08/26/18 1:00 pm Juliano Gates MD [Primary Care Provider] - - Discharge Summary/Plan Comment DC Time >30 min.: Yes - General Info Date of Service: 08/17/18 Admission Dx/Problem (Free Text: Admission Diagnosis/Problem Admission Diagnosis/Problem Cellulitis, left lower leg Subjective Update: Doing much better today. Hemodynamically stable. Functional Status: Reports: Pain Controlled - Review of Systems General: Reports: No Symptoms HEENT: Reports: No Symptoms Pulmonary: Reports: No Symptoms Cardiovascular: Reports: No Symptoms Gastrointestinal: Reports: No Symptoms Genitourinary: Reports: No Symptoms Musculoskeletal: Reports: No Symptoms Skin: Reports: No Symptoms Neurological: Reports: No Symptoms Psychiatric: Reports: No Symptoms - Patient Data Vitals - Most Recent: Last Vital Signs Temp 36.8 C 08/17/18 07:39 Pulse 69 08/17/18 07:39 Resp 16 08/17/18 07:39 BP 136/86 08/17/18 04:00 Pulse Ox 98 08/17/18 07:39 Weight - Most Recent: 151.642 kg I&O - Last 24 hours: Intake & Output 08/16/18 08/17/18 08/17/18 22:59 06:59 14:59 Intake Total 3665 1600 Output Total 1050 1100 Balance 2615 500 Lab Results - Last 24 hrs: Laboratory Results - last 24 hr 08/16/18 08/16/18 08/17/18 Range/Units 08:02 08:02 06:20 WBC 8.94 8.98 (4.0-11.0) K/uL RBC 3.70 L 3.59 L (4.50-5.90) M/uL Hgb 10.9 L 10.7 L (13.0-17.0) g/dL Hct 32.8 L 31.8 L (38.0-50.0) % MCV 88.6 88.6 (80.0-98.0) fL MCH 29.5 29.8 (27.0-32.0) pg MCHC 33.2 33.6 (31.0-37.0) g/dL RDW Std Deviation 44.0 43.6 (28.0-62.0) fl RDW Coeff of Agata 14 13 (11.0-15.0) % Plt Count 192 200 (150-400) K/uL MPV 8.60 8.60 (7.40-12.00) fL Neut % (Auto) 63.8 68.8 (48.0-80.0) % Lymph % (Auto) 23.7 20.9 (16.0-40.0) % [place] % (Auto) 9.3 6.8 (0.0-15.0) % Eos % (Auto) 2.8 2.9 (0.0-7.0) % Baso % (Auto) 0.4 0.6 (0.0-1.5) % Neut # (Auto) 5.7 6.2 H (1.4-5.7) K/uL Lymph # (Auto) 2.1 1.9 (0.6-2.4) K/uL [place] # (Auto) 0.8 0.6 (0.0-0.8) K/uL Eos # (Auto) 0.3 0.3 (0.0-0.7) K/uL Baso # (Auto) 0.0 0.1 (0.0-0.1) K/uL Nucleated RBC % 0.0 0.0 /100WBC Nucleated RBCs # 0 0 K/uL Sodium 141 (136-148) mmol/L Potassium 3.9 (3.5-5.1) mmol/L Chloride 105 (98-107) mmol/L Carbon Dioxide 28.8 (21.0-32.0) mmol/L BUN 16 (7.0-18.0) mg/dL Creatinine 1.0 (0.8-1.3) mg/dL Est Cr Clr Drug Dosing 103.89 mL/min Estimated GFR (MDRD) > 60.0 ml/min Glucose 106 (74-106) mg/dL Calcium 8.1 L (8.5-10.1) mg/dL 08/17/18 Range/Units 06:20 WBC (4.0-11.0) K/uL RBC (4.50-5.90) M/uL Hgb (13.0-17.0) g/dL Hct (38.0-50.0) % MCV (80.0-98.0) fL MCH (27.0-32.0) pg MCHC (31.0-37.0) g/dL RDW Std Deviation (28.0-62.0) fl RDW Coeff of Agata (11.0-15.0) % Plt Count (150-400) K/uL MPV (7.40-12.00) fL Neut % (Auto) (48.0-80.0) % Lymph % (Auto) (16.0-40.0) % [place] % (Auto) (0.0-15.0) % Eos % (Auto) (0.0-7.0) % Baso % (Auto) (0.0-1.5) % Neut # (Auto) (1.4-5.7) K/uL Lymph # (Auto) (0.6-2.4) K/uL [place] # (Auto) (0.0-0.8) K/uL Eos # (Auto) (0.0-0.7) K/uL Baso # (Auto) (0.0-0.1) K/uL Nucleated RBC % /100WBC Nucleated RBCs # K/uL Sodium 140 (136-148) mmol/L Potassium 3.7 (3.5-5.1) mmol/L Chloride 105 (98-107) mmol/L Carbon Dioxide 28.2 (21.0-32.0) mmol/L BUN 14 (7.0-18.0) mg/dL Creatinine 1.0 (0.8-1.3) mg/dL Est Cr Clr Drug Dosing 103.89 mL/min Estimated GFR (MDRD) > 60.0 ml/min Glucose 117 H (74-106) mg/dL Calcium 8.5 (8.5-10.1) mg/dL [facility] Results - Last 24 hrs: Microbiology 08/14/18 17:43 Aerobic Blood Culture - Preliminary Blood - Venous - Lab Draw NO GROWTH AFTER 2 DAYS Anaerobic Blood Culture - Preliminary NO GROWTH AFTER 2 DAYS 08/14/18 17:20 Aerobic Blood Culture - Preliminary Blood - Venous NO GROWTH AFTER 2 DAYS Anaerobic Blood Culture - Preliminary NO GROWTH AFTER 2 DAYS Med Orders - Current: Current Medications Acetaminophen (Tylenol) 650 mg PO Q4H PRN PRN Reason: Pain (Mild 1-3)/fever Last Admin: 08/17/18 07:38 Dose: 650 mg Amlodipine Besylate (Norvasc) 5 mg PO DAILY [facility] Last Admin: 08/16/18 08:31 Dose: 5 mg Benzocaine/Menthol (Cepacol Sore Throat) 1 lozenge MUCMEM Q2HR PRN PRN Reason: Sore Throat Last Admin: 08/14/18 22:00 Dose: 1 lozenge Docusate Sodium (Colace) 100 mg PO BID PRN PRN Reason: Constipation Last Admin: 08/15/18 21:32 Dose: 100 mg Enoxaparin Sodium (Lovenox) 40 mg SUBCUT Q24H [facility] Last Admin: 08/16/18 17:34 Dose: 40 mg Hydrochlorothiazide (Hydrochlorothiazide) 25 mg PO DAILY [facility] Last Admin: 08/16/18 08:30 Dose: 25 mg Piperacillin Sod/Tazobactam (Sod 4.5 gm/ Sodium Chloride) 100 mls @ 100 mls/hr IV Q8H [facility] Last Admin: 08/17/18 02:00 Dose: 100 mls/hr Sodium Chloride (Normal Saline) 1,000 mls @ 100 mls/hr IV ASDIRECTED [facility] Last Admin: 08/17/18 00:45 Dose: 100 mls/hr Vancomycin HCl 2 gm/ Sodium (Chloride) 500 mls @ 333.333 mls/hr IV NOW [facility] Vancomycin HCl 1.75 gm/ Sodium (Chloride) 500 mls @ 333.333 mls/hr IV Q8H [facility] Last Admin: 08/17/18 03:00 Dose: 333.333 mls/hr Ketorolac Tromethamine (Toradol) 30 mg IV Q6H PRN PRN Reason: Pain (moderate 4-6) Last Admin: 08/16/18 15:03 Dose: 30 mg Lisinopril (Prinivil) 20 mg PO BID [facility] Last Admin: 08/16/18 21:12 Dose: 20 mg Metoprolol Tartrate (Lopressor) 25 mg PO BID [facility] Last Admin: 08/16/18 21:12 Dose: 25 mg Ondansetron HCl (Zofran) 4 mg IVPUSH Q6H PRN PRN Reason: Nausea/Vomiting Last Admin: 08/17/18 03:17 Dose: 4 mg Temazepam (Restoril) 15 mg PO BEDTIME PRN PRN Reason: Sleep Last Admin: 08/16/18 21:12 Dose: 15 mg Vancomycin HCl (Pharmacy To Dose - Vancomycin) 1 dose .XX ASDIRECTED [facility] Discontinued Medications Sodium Chloride (Normal Saline) 1,000 mls @ 999 mls/hr IV STAT ONE Stop: 08/14/18 18:16 Last Admin: 08/14/18 17:30 Dose: 999 mls/hr Vancomycin HCl 1 gm/ Sodium (Chloride) 250 mls @ 250 mls/hr IV ONETIME ONE Stop: 08/14/18 18:15 Last Admin: 08/14/18 17:30 Dose: 250 mls/hr Piperacillin Sod/Tazobactam (Sod 4.5 gm/ Sodium Chloride) 100 mls @ 100 mls/hr IV ONETIME ONE Stop: 08/14/18 18:26 Last Admin: 08/14/18 17:37 Dose: 100 mls/hr Sodium Chloride (Normal Saline) 1,000 mls @ 999 mls/hr IV STAT ONE Stop: 08/14/18 18:27 Last Admin: 08/14/18 18:57 Dose: Not Given - Exam Quality Assessment: Denies: Supplemental Oxygen General: Reports: Alert, Oriented, Cooperative, No Acute Distress HEENT: Reports: Pupils Equal, Pupils Reactive, Mucous Membr. Moist/[place] Neck: Reports: Supple, Trachea Midline Lungs: Reports: Clear to Auscultation, Normal Respiratory Effort Cardiovascular: Reports: Regular Rate, Regular Rhythm GI/Abdominal Exam: Normal Bowel Sounds, No Distention (Male) Exam: Deferred Rectal (Males) Exam: Deferred Extremities: Normal Inspection, No Pedal Edema Skin: Reports: Warm, Dry, Rash (Improving area of cellulitis with less erythema and edema.) Wound/Incisions: Reports: Healing Well Neurological: Reports: No New Focal Deficit Psy/Mental Status: Reports: Alert, Normal Affect, Normal Mood
[2018-08-17] MEDS: amLODIPine 5 MG Tab PO SCH (09:25)
[2018-08-17] MEDS: Hydrochlorothiazide 25 MG Tab PO SCH (09:26)
[2018-08-17] MEDS: Lisinopril 10 MG Tab PO SCH (09:26)
[2018-08-17] MEDS: Metoprolol Tartrate 25 MG Tab PO SCH (09:26)
== END 2018-08-17 09:55 | disposition home or self-care (01) ==
LOC: MW.ED 17:12 → MW.MS 18:48
PROVIDERS: ADMIT Internal Medicine; ATTEND Internal Medicine
DX: L03.116 Cellulitis of left lower limb (principal); A41.9 Sepsis, unspecified organism; I10 Essential (primary) hypertension; J44.9 Chronic obstructive pulmonary disease, unspecified; E66.01 Morbid (severe) obesity due to excess calories; Z68.42 Body mass index [BMI] 45.0-49.9, adult; G47.30 Sleep apnea, unspecified
CPT/HCPCS: 36415; 71045; 73590; 80048; 80053; 80202; 81001; 83605; 85025; 85610; 87040; 93971; 96365; 96375; 99284; A9270; J1650; J1885; J2405; J2543; J3370; J7030; J7040; J7050; 99283

== ENCOUNTER 2025-02-08 08:17 | Emergency (ER) | payer BC, OTHER ==
[2025-02-08 08:52] LABS: APPEARANCE,URINE CLEAR; GLUCOSE,URINE NEGATIVE (NEGATIVE); OCCULT BLOOD,URINE MODERATE (NEGATIVE)
[2025-02-08] MEDS ORDERED: Sodium Chloride 0.9% 10 ML Syringe FLUSH PRN (08:55)
[2025-02-08] MEDS ORDERED: Sodium Chloride 0.9% 2.5 ML Syringe FLUSH PRN (08:55)
[2025-02-08 08:59] LABS: EPITHELIAL CELLS,URINE RARE (NONE-FEW)
[2025-02-08 08:59] LABS: BASOPHILS ABSOLUTE AUTO 0.07 K/uL (0.00-0.20); BASOPHILS PERCENT AUTO 0.7 % (0.0-1.0); EOSINOPHILS ABSOLUTE AUTO 0.20 K/uL (0.00-0.45); EOSINOPHILS PERCENT AUTO 1.9 % (0.0-6.0); IMMATURE GRAN ABSOLUTE AUTO 0.12 K/uL (0.00-0.05); IMMATURE GRAN PERCENT AUTO 1.1 % (0.0-0.4); LYMPHOCYTES ABSOLUTE AUTO 1.63 K/uL (1.00-4.80); LYMPHOCYTES PERCENT AUTO 15.5 % (24.0-44.0); MEAN PLATELET VOLUME 9.1 fL (9.4-12.4); MONOCYTES ABSOLUTE AUTO 0.50 K/uL (0.00-0.80); MONOCYTES PERCENT AUTO 4.7 % (0.0-8.0); NEUTROPHILS ABSOLUTE AUTO 8.01 K/uL (1.80-7.70); NEUTROPHILS PERCENT AUTO 76.1 % (41.0-71.0); NRBC ABSOLUTE 0.00 K/uL (0.00-0.02); NRBC PERCENT 0.0 /100WBC (0.0-0.2); PLATELET COUNT,PLT 249 K/uL (150-400); RED BLOOD CELL COUNT 4.39 M/uL (4.52-5.90); WHITE BLOOD CELL COUNT,WBC 10.53 K/uL (3.9-11.3)
[2025-02-08] MEDS: Ketorolac 30 MG/ML SDV IVPUSH ONE (09:05)
[2025-02-08 09:10] LABS: A/G RATIO 0.9 (0.9-1.6); ALANINE AMINOTRANSFERASE,ALT 35.0 IU/L (14-63); ASPARTATE AMNIOTRANSFERASE,AST 16.0 IU/L (15-37); BILIRUBIN TOTAL 0.3 mg/dL (0.2-1.0); BLOOD UREA NITROGEN,BUN 18.0 mg/dL (7.0-18.0); CARBON DIOXIDE,CO2 26.7 mmol/L (21.0-32.0); CHLORIDE,CL 102.0 mmol/L (98-107); CREATININE 1.0 mg/dL (0.8-1.3); EST CRCL DRUG DOSING (CG) 97.04 mL/min; GLUCOSE RANDOM 130.0 mg/dL (74-106); POTASSIUM,K 4.0 mmol/L (3.5-5.1); PROTEIN TOTAL,TP 7.6 g/dL (6.4-8.2); SODIUM,NA 140.0 mmol/L (136-148)
[2025-02-08 09:11] LABS: ESTIMATED GFR 89.0 mL/min (>60)
[2025-02-08] MEDS: Iopamidol 755 MG/ML 500 ML Multipack Bottle IVPUSH STA (09:32)
== END 2025-02-08 12:10 | disposition home or self-care (01) ==
LOC: MW.ED 08:17
DX: N13.2 Hydronephrosis with renal and ureteral calculous obstruction (principal); R93.89 Abnormal findings on diagnostic imaging of other specified body structures; I10 Essential (primary) hypertension; Z79.899 Other long term (current) drug therapy
CPT/HCPCS: 36415; 74177; 76870; 80053; 81001; 85025; 93976; 96361; 96374; 99284; J1885; J7030; Q9967; 99283